=== PATIENT | female | born 1995 | race African-American/Black ===

== ENCOUNTER 2024-02-03 10:35 | Emergency (ER) | payer MEDICAID, SELFPAY ==
[2024-02-03 10:42] VITALS: BP 133/88; PULSE 100; RESP 16; TEMP 36.2; O2SAT 99; BMI 25.0
[2024-02-03] MEDS: Ondansetron ODT 4 MG TAB.RAPDIS TRANSLINGU (10:47)
[2024-02-03 10:59] LABS: Hematocrit 34.6 % (37.0-47.0); Hemoglobin 12.2 g/dl (12.0-16.0); Mean Corpuscular HGB Conc 35.3 g/dl (31.0-35.0); Mean Corpuscular Hemoglobin 39.1 pg (27.0-33.0); Platelet Count 324 X10*3/uL (160-400); Red Blood Count 3.12 X10*6/uL (4.20-5.50); Red Cell Distribution Width 18.3 % (11.0-16.0)
[2024-02-03 11:00] LABS: Mean Corpuscular Volume 110.9 fL (80.0-98.0); WBC ABN SCTR FOR CBC 1
--- NOTE | 2024-02-03 11:14 | ED_ITS ---
HPI - Nausea/Vomiting/Diarrhea General Chief complaint: Nausea/Vomiting/Diarrhea Stated complaint: Vomiting Time Seen by Provider: 02/03/24 11:09 Source: patient Mode of arrival: ambulatory Limitations: no limitations History of Present Illness ED Provider: YENNI FRANCIS Narrative: 28 yo female with no sig PMH here with c/o recent ETOH use though she is vague about how much and what she is using. 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 She denies any ETOH related illness in the past. MD elicited complaint: nausea, vomiting and diarrhea Onset (ago): day(s) (3) Description of vomiting: food contents, watery and bilious Description of diarrhea: watery Associated nausea: Yes Associated abdominal pain: No Severity: moderate Exacerbating factors: eating Relieving factors: none Context: alcohol abuse Associated symptoms: loss of appetite, malaise, nausea/vomiting and weakness Related Data Previous Rx's ?Medication ?Instructions ?Recorded chlordiazepoxide HCl 25 mg capsule 50 mg (2 x 25 mg) PO Q4H PRN 02/03/24 alcohol withdrawal 6 doses #12 caps ondansetron 4 mg disintegrating 4 mg PO Q8H PRN nausea and 02/03/24 tablet vomiting #20 tabs potassium chloride 20 mEq 20 meq PO DAILY #5 tabs 02/03/24 tablet,extended release Allergies Allergy/AdvReac Type Severity Reaction Status Date / Time No Known Allergies Allergy Verified 02/03/24 10:43 Review of Systems 2 Review of Systems: Constitutional : No Weight loss, No Fever, No Chills ENT/Mouth : No sore throat, No Rhinorrhea Eyes: No Swelling, No Redness Cardiovascular : No Chest Pain, No SOB, NoEdema Respiratory : No Cough, No Sputum, No Wheezing Gastrointestinal : Positive Nausea, Positive Vomiting, positive Diarrhea, no abdominal Pain, No Hematochezia, No Melena Genitourinary : No Dysuria, No Urinary Frequency, No Hematuria, No Urgency Musculoskeletal : No joint pain, No Myalgias, No Joint Swelling Skin : No Skin Lesions, No rash Neuro : No Weakness, No Numbness, No Dizziness, No Headache Psych : No Anxiety/Panic, No Depression All other systems reviewed and are negative. Gastrointestinal: Gastrointestinal: Reports nausea PMFSH Past Medical History Attestation statement: The following information was validated with the patient. Source: old records reviewed Medical History GERD (gastroesophageal reflux disease) Social History Social History (Updated 02/03/24 @ 12:12 by Olinda Romero DO) Alcohol intake: current Patient Tobacco Use Status: Tobacco use Unknown Advance Directives: No Advance Directives Information Provided: No Physical Exam 2 Vital Signs: Vital Signs: Last Vital Signs Temp 98.0 F 02/03/24 14:57 Pulse 81 02/03/24 14:57 Resp 18 02/03/24 14:57 BP 118/79 02/03/24 14:57 Pulse Ox 100 02/03/24 14:57 O2 Del Method Room Air 02/03/24 14:57 BMI result Body Mass Index 25.0 Appearance: Alert. Oriented X3. No acute distress. Eyes: Pupils equal, round and reactive to light. ENT: Pharynx dry MM. tongue fasciculations Neck: Normal inspection. Neck supple. CVS: Normal heart rate and rhythm. Pulses normal. Respiratory: No respiratory distress. Breath sounds normal. Abdomen: Soft and nontender. Skin: Skin warm and dry. Normal skin color. Normal skin turgor. Extremities: No lower extremity edema. No calf ttp Neuro: Oriented X 3. No motor deficit. No sensory deficit. bilateral tremors of both hands noted Course Course Course Narrative: states she is drinking upwards of 10 nips a day for 3 months and then pink whitneys on top of it reportedly stopped drinking 2 weeks ago but this timeline seems inconsistent Reevaluation(s) Reevaluation #1: we had many conversations about not drinking ETOH patient is still very reluctant to talk to me about it. Medications Administered Discontinued Medications Generic Name Dose Route Start Last Admin Trade Name Freq PRN Reason Stop Dose Admin Potassium Chloride 10 meq in 100 mls @ 100 mls/hr 02/03/24 11:30 02/03/24 15:38 Potassium Chloride/H20 IV 02/03/24 15:29 Infused Q1H KAI Infusion Thiamine HCl 200 mg/ Sodium 102 mls @ 204 mls/hr 02/03/24 11:27 02/03/24 14:49 Chloride IV 02/03/24 11:56 Infused ONCE ONE Infusion Magnesium Sulfate 2 gm in 50 mls @ 25 mls/hr 02/03/24 11:32 02/03/24 14:23 Magnesium Sulfate/H2o IV 02/03/24 13:31 Infused ONCE ONE Infusion Sodium Chloride 1,000 mls @ 999 mls/hr 02/03/24 11:33 02/03/24 13:41 Ns IV 02/03/24 12:33 Infused .Q1H1M ONE Infusion Lorazepam 2 mg 02/03/24 11:27 02/03/24 12:24 Lorazepam 2 Mg/Ml Vial IVPUSH 02/03/24 11:28 2 mg ONCE ONE Administration Lorazepam 2 mg 02/03/24 13:44 02/03/24 14:15 Lorazepam 1 Mg Tablet PO 02/03/24 13:45 2 mg ONCE ONE Administration Ondansetron HCl 4 mg 02/03/24 10:45 02/03/24 10:47 Ondansetron Odt 4 Mg Tab.Rapdis TRANSLINGU 02/03/24 10:46 4 mg ONCE ONE Administration Pantoprazole Sodium 40 mg 02/03/24 11:32 02/03/24 12:24 Pantoprazole Sodium 40 Mg/10 Ml Vial IVPUSH 02/03/24 11:33 40 mg ONCE ONE Administration Potassium Chloride 20 meq 02/03/24 13:27 02/03/24 13:37 Potassium Chloride Packet 20 Meq Packet PO 02/03/24 13:28 20 meq ONCE ONE Administration Prochlorperazine Edisylate 10 mg 02/03/24 11:32 02/03/24 12:24 Prochlorperazine Edisylate 10 Mg/2 Ml Vial IVPUSH 02/03/24 11:33 10 mg ONCE ONE Administration Medical Decision Making Medical Decision Making [facility] Narrative: 28 yo female with labs and clinical presentation concerning for ETOH abuse and mild withdrawal at this time she is not forthcoming about how much she is drinking will obtain labs, lytes, start on IVF and protonix, nausea medications and IV ativan will reassess once improved. Abdomen is benign low susp for biliary pathology Differential Diagnosis Differential Diagnoses: The differential diagnosis associated with the presentation includes ETOH gasttitis, withdrawal, lyte abnormality Admission/Observation Consideration of admission/observation: Escalation of care including admission/observation considered declined addiction medicine consult tolerating PO repleted lytes refuses to stay for 2 more runs of K will start on Rx does not want admission Lab Data [facility] Lab Attestation statement: I reviewed the patient's lab results. 02/03/24 10:53 02/03/24 10:53 Labs: Lab Results 02/03/24 Range/Units 10:53 WBC 9.5 (4.8-10.8) X10*3/uL RBC 3.12 L (4.20-5.50) X10*6/uL Hgb 12.2 (12.0-16.0) g/dl Hct 34.6 L (37.0-47.0) % MCV 110.9 H (80.0-98.0) fL MCH 39.1 H (27.0-33.0) pg MCHC 35.3 H (31.0-35.0) g/dl RDW 18.3 H (11.0-16.0) % Plt Count 324 (160-400) X10*3/uL MPV 10.0 (9.4-12.3) fL Immature Gran % (Auto) Cancelled Neut % (Auto) Cancelled Lymph % (Auto) Cancelled [place] % (Auto) Cancelled Eos % (Auto) Cancelled Baso % (Auto) Cancelled Lymph # (Auto) Cancelled [place] # (Auto) Cancelled Eos # (Auto) Cancelled Baso # (Auto) Cancelled Abs Immat Gran (auto) Cancelled Absolute Neuts (auto) Cancelled Absolute Nucleated RBC 0.000 (0.0-0.012) X10*3/uL Nucleated RBC % (auto) 0.0 (0.0-0.2) /100WBC Neutrophils % (Manual) 64 (45-73) % Band Neutrophils % 0 L (3-5) % Lymphocytes % (Manual) 30 (20-40) % Monocytes % (Manual) 5 (2-11) % Eosinophils % (Manual) 1 (0-4) % Abs Neuts (Manual) 6.1 (2.0-8.3) X10*3/uL Lymphocytes # (Manual) 2.9 (1.2-4.9) X10*3/uL Monocytes # (Manual) 0.5 (0.1-1.2) X10*3/uL Eosinophils # (Manual) 0.1 (0.0-0.4) X10*3/uL Platelet Estimate NORMAL (NORMAL) Plt Morphology Comment NORMAL RBC Morphology NOTED Stomatocytes 1+ (5-14) /OIF Sodium 140 (135-145) mmol/L Potassium 2.8 L* (3.3-5.1) mmol/L Chloride 95 L (96-108) mmol/L Carbon Dioxide 29 (22-29) mmol/L Anion Gap 19 (12-20) BUN 5 L (9-16) mg/dL Creatinine 1.00 (0.5-1.4) mg/dL Estim Creat Clear Calc 74.0 Estimated GFR > 60 Random Glucose 92 (60-115) mg/dL Calcium 9.6 (8.4-10.2) mg/dL Magnesium 1.4 L* (1.6-2.6) mg/dL Total Bilirubin 1.4 H (0.0-1.0) mg/dL Direct Bilirubin 0.5 (0.0-0.5) mg/dL AST 152 H (5-31) U/L ALT 61 H (0-31) U/L Alkaline Phosphatase 126 H (39-117) U/L Total Protein 9.1 H (6.5-8.0) g/dL Albumin 4.5 (3.5-5.0) g/dL Ethyl Alcohol < 10 mg/dL Independent Interpretation I performed an independent interpretation of an: EKG Interpretation: Rate: 68 Rhythm: NSR [place]: normal Normal P waves. Normal YAIR. Normal QRS complex. ST T wave : no KRYSTAL, nonspecific ST T wave changes laterally qTC: 457 prior studies: no acute ischemia The study has been interpreted contemporaneously by me. . Prescription Management I considered prescription management with: Other Critical Care Time Critical Care Time Critical Care Time: Yes Total Critical Care Time: 60 Attestation: IV potassium 4 runs, IV magnesium, IVF, IV ativan with improvement in symptoms I attest to this time spent taking care of the patient Discharge Plan Discharge Clinical Impression: Acute hypokalemia, Hypomagnesemia, Elevated LFTs Alcoholic gastritis Qualifiers: Chronicity: acute Gastritis bleeding: without bleeding Qualified Code(s): K 29.20 - Alcoholic gastritis without bleeding Alcohol withdrawal Qualifiers: Complication of substance-induced condition: uncomplicated Qualified Code(s): F - Alcohol use, unspecified with withdrawal, uncomplicated Patient Disposition: Home, Self-Care Instructions: Gastritis (ED), Hypokalemia (ED), Abuse of Alcohol (ED), Alcohol Withdrawal (ED), Hypomagnesemia (ED) Additional Instructions: avoid alcohol stay hydrated talk to your doctor about your drinking or follow up with our comprehensive care clinic return for dizziness, fainting, inability to eat or drink or any other concerns follow up with comprehensive care clinic as well [phone] Prescriptions: New potassium chloride 20 mEq tablet extended release 20 meq PO DAILY Qty: 5 0RF ondansetron 4 mg tablet,disintegrating 4 mg PO Q8H PRN (Reason: nausea and vomiting) Qty: 20 0RF chlordiazepoxide HCl 25 mg capsule 50 mg PO Q4H PRN (Reason: alcohol withdrawal) Qty: 12 0RF Rx Instructions: until symptoms controlled Stand Alone Forms: Work/School Release Print Language: Telugu
--- NOTE | 2024-02-03 11:19 | ECG_ITS ---
Test Reason : QTC CHECK Blood Pressure : / mmHG Vent. Rate : 068 BPM Atrial Rate : 068 BPM P-R Int : 140 ms QRS Dur : 078 ms QT Int : 430 ms P-R-T Axes : 040 010 039 degrees QTc Int : 457 ms Normal sinus rhythm with sinus arrhythmia Normal ECG No previous ECGs available Referred By: Olinda Romero Electronically Signed By:OLIMPIA RANDLE
[2024-02-03 11:21] LABS: Alanine Aminotransferase 61 U/L (0-31); Albumin Level 4.5 g/dL (3.5-5.0); Alkaline Phosphatase 126 U/L (39-117); Anion Gap 19 (12-20); Aspartate Amino Transferase 152 U/L (5-31); Bilirubin Direct 0.5 mg/dL (0.0-0.5); Bilirubin Total 1.4 mg/dL (0.0-1.0); Blood Urea Nitrogen 5 mg/dL (9-16); Calcium 9.6 mg/dL (8.4-10.2); Carbon Dioxide 29 mmol/L (22-29); Chloride 95 mmol/L (96-108); Estimated Glomerular Filt Rate > 60; Glucose Random 92 mg/dL (60-115); Potassium 2.8 mmol/L (3.3-5.1); Sodium 140 mmol/L (135-145); Total Protein 9.1 g/dL (6.5-8.0)
[2024-02-03 11:25] LABS: Band Neutrophils Percent 0 % (3-5); Eosinophils Percent Manual 1 % (0-4); Lymphocytes Percent Manual 30 % (20-40); Monocytes Percent Manual 5 % (2-11); Neutrophils Percent Manual 64 % (45-73)
[2024-02-03 11:26] LABS: RBC Morphology NOTED; Stomatocytes 1+ (5-14) /OIF
[2024-02-03 11:27] LABS: Eosinophils Absolute Manual 0.1 X10*3/uL (0.0-0.4); Lymphocytes Absolute Manual 2.9 X10*3/uL (1.2-4.9); Monocytes Absolute Manual 0.5 X10*3/uL (0.1-1.2); Neutrophils Absolute Manual 6.1 X10*3/uL (2.0-8.3); Platelet Estimate NORMAL (NORMAL); Platelet Morphology Comment NORMAL; White Blood Count 9.5 X10*3/uL (4.8-10.8)
[2024-02-03 11:44] LABS: Ethanol < 10 mg/dL; Magnesium 1.4 mg/dL (1.6-2.6)
[2024-02-03] MEDS: Magnesium Sulfate/H2O 2 GM/50 ML PIGGYBACK IV (12:23)
[2024-02-03] MEDS: LORazepam 2 MG/ML VIAL IVPUSH (12:24)
[2024-02-03] MEDS: Thiamine HCL 200 MG in 0.9 % Sodium Chloride 100 ML 204 MG IV (12:24)
[2024-02-03] MEDS: Pantoprazole Sodium 40 MG/10 ML VIAL IVPUSH (12:24)
[2024-02-03] MEDS: Prochlorperazine Edisylate 10 MG/2 ML VIAL IVPUSH (12:24)
[2024-02-03] MEDS: Potassium Chloride/H20 10 MEQ/100 ML PIGGYBACK 100 MEQ IV ×2 (12:25→13:36)
[2024-02-03] MEDS: 0.9 % Sodium Chloride 1,000 ML 999 ML IV (12:25)
--- NOTE | 2024-02-03 12:40 | PC.NURSE ---
a&ox4. vss and up to date. pt c/o n/v/d x 3 days. pt presents as extremely tremulous. pt verbalizes recently quitting etoh cold turkey x 2 weeks ago. pt states drinking 7-10 nips of fireball and 3-5 shots of pink xiomara daily x 3 months. denies any drug use. CIWA = 10 at this time. provider notified/aware. 20gIVs placed in the ACs bilaterally. medication administered per provider order. pt seen by ED provider/aware of plan of care moving forward. no sob/wob noted. respirations even/unlabored. plan of care ongoing. call alves placed within reach.
[2024-02-03] MEDS: Potassium Chloride Packet 20 MEQ PACKET PO (13:37)
--- NOTE | 2024-02-03 13:42 | PC.NURSE ---
updated CIWA s/p ativan administration = 5. 2nd bag of potassium infusing at this time. plan of care ongoing. call alves placed within reach.
[2024-02-03] MEDS: LORazepam 1 MG TABLET 2 MG PO (14:15)
[2024-02-03 14:57] VITALS: BP 118/79; PULSE 81; RESP 18; TEMP 36.7; O2SAT 100
--- NOTE | 2024-02-03 15:47 | PC.NURSE ---
pt still has 2 bags of potassium to be administered at this time. pt requesting to leave - states she does not want medication to infuse. provider notified/aware.
[2024-02-03 16:40] VITALS: BP 118/79; PULSE 81; RESP 18; TEMP 36.7; O2SAT 100
== END 2024-02-03 16:41 | disposition home or self-care (01) ==
PROVIDERS: Emergency Provider Emergency Medicine
DX: K29.20 Alcoholic gastritis without bleeding (principal); F10.930 Alcohol use, unspecified with withdrawal, uncomplicated; R11.2 Nausea with vomiting, unspecified; R19.7 Diarrhea, unspecified; E87.6 Hypokalemia; E83.42 Hypomagnesemia; R74.01 Elevation of levels of liver transaminase levels
CPT/HCPCS: 36415; 80048; 80076; 80307; 83735; 85007; 85025; 85027; 93005; 96365; 96366; 96367; 96375; 99284; J0737; J2060; J2470; J3411; J3475; J3480

== ENCOUNTER → 2024-02-03 11:19 | Outpatient (BNV) | payer MEDICAID, SELFPAY | PROVIDERS: Emergency Provider Emergency Medicine; Visit Provider Internal Medicine | DX: I49.8 Other specified cardiac arrhythmias (principal) | CPT/HCPCS: 93010 ==